=== PATIENT | male | born 1975 | race Caucasian/White ===

== ENCOUNTER 2017-05-12 11:24 | Emergency (ER) | payer MEDICAID ==
[~2017-05-12] VITALS: Ht 180.3 cm; Wt 141.0 kg
[2017-05-12 11:32] VITALS: BP 169/85
[2017-05-12] MEDS ORDERED: LEVO25TA2 PO (11:37)
[2017-05-12] MEDS ORDERED: AMLO2.5T2 PO (11:37)
[2017-05-12] MEDS ORDERED: ATOR10TA69 PO (11:37)
[2017-05-12] MEDS ORDERED: VISCOUS LIDOCAINE 2% 15 ML UDC MM PRN (13:30)
== END 2017-05-12 14:07 | disposition home or self-care (01) ==
LOC: ER 12:16
DX: J02.8 Acute pharyngitis due to other specified organisms (principal); B97.89 Other viral agents as the cause of diseases classified elsewhere; R05 Cough; E11.9 Type 2 diabetes mellitus without complications; I10 Essential (primary) hypertension; E78.00 Pure hypercholesterolemia, unspecified
CPT/HCPCS: 99283